=== PATIENT | male | born 2000 | race Caucasian/White ===

== ENCOUNTER 2021-11-08 12:57 | Emergency (ER) | payer SELFPAY ==
[~2021-11-08] VITALS: Ht 177.8 cm; Wt 72.6 kg
--- NOTE | 2021-11-08 13:15 | NUR ---
BIB FRIEND C/O SORE THROAT. AMBULATORY NOT IN DISTRESS AAOX4. WITH HORESNESS OF THE VOICE NOTED. ON BED SIDE
[2021-11-08] MEDS ORDERED: DEXAMETHASONE SOD PHOSPHATE 10 MG/ML VIAL ONE (13:19)
[2021-11-08] MEDS ORDERED: DEXAMETHASONE SOD PHOSPHATE 10 MG/ML VIAL IM ONE (13:30)
--- NOTE | 2021-11-08 13:35 | NUR ---
AAOX4 NOT IN DISTRESS. AMBULATORY
[2021-11-08 14:05] VITALS: BP 135/78
--- NOTE | 2021-11-08 14:05 | NUR ---
Patient discharged to home in stable condition. Written and verbal after care instructions given. Patient verbalizes understanding of instruction.
== END 2021-11-08 14:06 | disposition home or self-care (01) ==
LOC: ER 13:07
DX: J36 Peritonsillar abscess (principal); Z60.2 Problems related to living alone
CPT/HCPCS: 96372; 99283; J1100